=== PATIENT | male | born 1970 | race Caucasian/White ===

== ENCOUNTER → 2017-01-29 | Outpatient (CLI) | payer OTHER ==
[~2017-01-29] MED LIST: ATOR-22 PO; GADAVIST IV PRN; OMEG10007 PO; PRLSR20 PO
--- NOTE | 2017-01-29 16:00 | DIAGNOSTIC IMAGING REPORT ---
PROSTATE MRI COMBO CLINICAL HISTORY: 46 years-old Male status post prostatectomy with elevated PSA. Preradiation therapy study.. TECHNIQUE: Multisequence, multiplanar MR imaging of the prostate was performed before and after the administration of intravenous contrast. COMPARISON: None. FINDINGS: No abnormal enhancement within the prostatectomy bed to suggest recurrent or residual disease. No pelvic lymphadenopathy. No suspicious osseous lesions within the visualized pelvic bones. Bladder is unremarkable. No abnormal enhancement within the pelvis. Small left-sided ureterocele. Subcutaneous edema within the right groin. Trace bilateral hydroceles. Bilobed cystic structure within the right pelvic sidewall which measures 5.4 x 3.1 cm. This demonstrates a thin wall. IMPRESSION: 1. Status post prostatectomy with no evidence for recurrent or metastatic disease within the pelvis. 2. A 5.4 x 3.1 cm bilobed cystic structure within the right pelvic sidewall. This likely represents a seroma or lymphocele. Electronically signed by: Hari Louis M.D. 01/29/2017 3:58 PM Dictated Date/Time: 01/29/2017 3:48 PM
== END | disposition home or self-care (01) ==
LOC: C.MRIBC 13:31
PROVIDERS: ATTEND Surgery
DX: C61 Malignant neoplasm of prostate (principal); R93.5 Abnormal findings on diagnostic imaging of other abdominal regions, including retroperitoneum

== ENCOUNTER → 2017-02-04 | Outpatient (CLI) | payer OTHER ==
[~2017-02-04] MED LIST changes: -GADAVIST IV PRN; +LEUP1INJ15 IM
--- NOTE | 2017-02-04 18:23 | DIAGNOSTIC IMAGING REPORT ---
NUCLEAR MEDICINE WHOLE-BODY BONE SCAN CLINICAL HISTORY: PROSTATE CA COMPARISON STUDY: MRI the prostate dated 01/29/2017 FINDINGS: The patient was injected with 25.6 mCi of technetium 99m MDP. Three-hour delayed whole body images were acquired. The skeletal uptake appears symmetric. There are no foci of increased activity viewed as suspicious for skeletal metastasis. Foci of increased activity within the shoulders wrists and left posterior neck are likely arthritic. IMPRESSION: No scintigraphic evidence of skeletal metastasis. Electronically signed by: Anthony Combs M.D. 02/04/2017 6:22 PM Dictated Date/Time: 02/04/2017 6:21 PM
== END | disposition home or self-care (01) ==
LOC: C.NUCL 14:48
PROVIDERS: ATTEND Radiology Radiation Oncology
DX: C61 Malignant neoplasm of prostate (principal)

== ENCOUNTER → 2017-06-26 | Outpatient (CLI) | payer OTHER ==
[~2017-06-26] MED LIST changes: +CHOL1000 PO; +VITACAP37 PO; +calcium PO
[2017-06-26 14:52] VITALS: BP 118/69; PULSE 79; TEMP 36.9; O2SAT 94
--- NOTE | 2017-06-26 16:15 | Radiation Oncology Follow-Up ---
Radiation Oncology Follow-Up Date of Visit Jun 26, 2017. Reason For Visit One-month follow-up Radiation Completion Date finished 05-23-2017 Diagnosis (1) Prostate cancer Status: Acute Onset Date: 05/21/2016 Location: Both lobes of the prostate Histology Subtype: Adenocarcinoma Stage: ll (B) Permanent Comment: Positive family history of prostate cancer Evaluation and finding of elevated PSA at 13.11 Status post ultrasound-guided biopsies 05/21/2016 Adenocarcinoma the prostate Jose 3+3 and 3+4 Prostate volume 29.84 Prostate density 0.44 Status post robotic-assisted prostatectomy with lymph node dissection 2016. (Dr. Rashid-[facility] [place]) Thor 3+3 on the left. 3+4 on the right, there was a positive margin at the right lateral apex Perineural invasion was present Stage pT2c pN0 Post prostatectomy rising PSA at 0.53 on 12/31/2016. Lupron 22.5 mg IM February 04, 2017 Lupron 22.5 mg IM May 06, 2017 will complete 6 months of hormone suppression. Status post completion of radiation therapy May 23, 2017. He received 6840 cGy. Utilizing volumetric modulated arc therapy. Last Edited By: Radha Titus on May 31, 2017 11:09 History of Present Illness Mr. Balderas's father was diagnosed with a prostate cancer. Due to this finding of a family history the patient underwent a baseline prostate-specific antigen. This was drawn on 04/20/2016 and was elevated at 13.11. The patient was sent for evaluation to Dr. Amaro to discuss diagnostic options. On digital rectal exam the patient was found to have a palpable nodule on the right side of his prostate gland. Because of these findings Dr. Amaro discussed prostate biopsy options under ultrasound guidance. The patient did agree. This procedure was scheduled and performed on 05/21/2016. A total of 15 core samples were taken. The samples from the left lateral base, left base, left lateral mid, left mid, left lateral apex and left apex were all benign. Biopsy from the right base revealed a prostatic adenocarcinoma Thor grade 3+4 involving 64% of the core tissue sample with no perineural invasion identified. Biopsy from the right lateral base was positive for prostatic adenocarcinoma Thor grade 3+3 involving 75% of the core tissue sample with no perineural invasion identified. Biopsy from the right mid gland revealed a prostatic adenocarcinoma Jose grade 3+3 involving 77% of the core tissue sample with no perineural invasion identified. Biopsies from the right lateral mid gland were positive for prostatic adenocarcinoma Thor grade 3+3 involving greater than 95% of the core tissue sample with no perineural invasion identified. Biopsies from the right apex was positive for adenocarcinoma Jose grade 3+3 involving less than 5% of the core tissue sample with no perineural invasion identified. 2 biopsies from the right lateral apex were positive for prostatic adenocarcinoma Jose grade 3+3 involving 60% percent of the core tissue sample with no perineural invasion identified. Therefore a total of 7 out of 15 biopsies were positive. 6 were Jose grade 3+3 and 1 was Jose grade 3+4. All 7 biopsies were positive in the right and 0 biopsies were positive on the left. This was therefore a clinical stage TIIa and a biopsy stage TIIb. Accession #: [id number]. The patient is scheduled to see Dr. Rashid on 06/19/2016 to discuss the role of radical robotic prostatectomy. We were asked to see the patient to discuss the role of definitive radiation. He underwent a robotic-assisted laparoscopic prostatectomy with lymph node dissection on 07/18/2016 at [facility]. The path report revealed adenocarcinoma, moderately to poorly differentiated, Jose score of 7 in (3+ 4). There was perineural invasion. There are 2 nodules found in the right lobe of the prostate. There was one nodule on the left lobe of the prostate. Those on the right were 3+4 and on the left was 3 +3. He had a positive margin at the right lateral apex. 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 11 lymph nodes were evaluated and were negative for metastatic disease. His AJCC's staging was [id number]. He had postoperative PSAs beginning on 2016. That was 0.10. He had a PSA on 12/26/2016 and was 0.49. Recheck PSA on was 0.53. He returned to our office and underwent salvage radiation therapy. Treatment was completed May 23, 2017. He received 6840 centigrade utilizing volumetric modulated arc therapy. Interim History He has been doing well over the past month from a urinary status point. He gave an AUA score today of 8. At the end of treatment he had given a score of 10. He continues to have hot flashes. Has have some difficulty with fatigue. He realizes these are related to his hormone suppression. He received his final injection May 06, 2017. This was a 22.5 mg injection. Towards the end of treatment he did have some issues with more frequent and urgent bowel movements. This continues but is steadily improving. He completed and expanded prostate cancer index composite for clinical practice and gave a score of 0 12 and urinary incontinence symptoms. He gave a score of 2 of 12 and urinary irritation symptoms. He gives score of 2 of 12 and bowel symptoms. He gave a score of 10 of 12 in sexual symptoms. He gave a score of 4 of 12 and hormonal vitality symptoms. His total was 18 of 20 Allergies Coded Allergies: Penicillins (Verified Allergy, Unknown, Rash, 06/12/16) Home Medications Scheduled Atorvastatin (Lipitor), 1 TAB PO DAILY Cholecalciferol (Vitamin D3), 1 TAB PO DAILY Fish Oil (Chalmers-3), 1 CAP PO DAILY Leuprolide Acetate (Lupron Depot), 22.5 MG IM DIRECTED Omeprazole (Prilosec), 20 MG PO DAILY Vitamin E (E-400), 1 PO DAILY [calcium ], 600 UNIT PO DAILY Review of Systems Gastrointestinal: GI Comments: occ loose stool, 2- 3 times a day , improving Oral: Symptoms: No Problems Respiratory: Symptoms: WNL Urinary: Symptoms: Nocturia Comments: nocturia times 1 , Skin: Symptoms: No Problems Other Skin Symptoms: " dry " Additional Notes: He completed a distress management report and answered "no" to all questions. Physical Exam Vital Signs Date Time Temp Pulse Resp B/P (MAP) Pulse Ox O2 Delivery O2 Flow Rate FiO2 06/26/17 14:52 36.9 79 18 118/69 94 ECOG Performance Status: 0 General Appearance: no apparent distress Eyes: normal inspection, EOMI ENT: normal ENT inspection, hearing grossly normal Neck: no adenopathy, thyroid normal Respiratory/Chest: lungs clear, no respiratory distress, no accessory muscle use Cardiovascular: regular rate, rhythm, no gallop, no murmur Abdomen: non tender, soft, no organomegaly Extremities: no pedal edema Neurologic/Psychiatric: no motor/sensory deficits, alert, normal mood/affect Skin: warm/dry Pain Management Patient Reports Pain: No Side: Bilateral Patient Preferred Pain Scale: 0 - 10 Initial Pain Intensity: 0.0 Pain Management Plan He denies pain therefore requires no pain management. Laboratory Laboratory Results: were reviewed, and pertinent findings noted below Laboratory Comments: Test 06/26/17 15:12 Prostate Specific Antigen < 0.010 ng/ml (0.000-4.000) Pathology Pathology Results: were reviewed, and pertinent findings noted in HPI Imaging Imaging Studies: were reviewed, and pertinent findings noted in HPI Assessment & Plan Plan: The patient was seen and examined by Dr. Funez. The PSA was drawn today. The patient will be notified as to the results. We discussed the effects of the hormone suppression. He is aware that his PSA is affected by the hormone suppression and he will not have a true value until this has left his system. We asked him to see Dr. Amaro in 3 months. He will return to our office in 6 months. He may call if he has any questions or concerns in the interim. Assessment & Plan (Attending) I agree with note created by Radha Titus PA-C. I reviewed the patient's chart and information with her. I have examined and evaluated the patient. I reviewed relevant clinical information and answered the patient's and/or family' s questions. NETWORK AND THREAT SUPPORT SPECIALIST Total Time In Follow-Up I spent 20 minutes speaking to the patient in performing examination. I spent 15 minutes reviewing information and completing this note. [place] Total Time (Attending) In Follow-Up I spent 15 minutes examining and counseling the patient. NETWORK AND THREAT SUPPORT SPECIALIST Copy To Adam Rashid M.D.; Anderson Arellano M.D.; Perla Amaro MD
== END | disposition home or self-care (01) ==
LOC: C.ONC 14:41
PROVIDERS: ATTEND Physician Assistant Medical
DX: Z08 Encounter for follow-up examination after completed treatment for malignant neoplasm (principal); Z92.3 Personal history of irradiation; Z85.46 Personal history of malignant neoplasm of prostate